=== PATIENT | female | born 1975 ===

== ENCOUNTER 2025-09-03 12:43 | Outpatient (AMB) | payer BC, SELFPAY ==
--- NOTE | 2025-09-03 12:46 | A.OFFPC_ITS ---
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 [employer] Required: No Accompanied by: Self / Same As Patient Allergies onions Allergy (Severe, Uncoded 09/03/25 12:52) Stomach Upset Medication List - Last Reconciled 09/03/25 by Cole Curry MD escitalopram oxalate 10 mg PO DAILY esomeprazole magnesium 20 mg PO DAILY losartan 50 mg PO DAILY Tobacco use date assessed: 09/03/25 Dental Screening Dental Screen Date: 09/03/25 Did you have a dental visit in the last 12 months?: Yes Did you have a dental problem in the last 6 months where you did not have access to dental care?: No Was dental information given to patient?: Patient has dentist HPI HPI Comments History of Present Illness Details The patient is a 50 year old female with PMH of GERD, MDD, IBS, PCOS presenting for a new patient visit to establish primary care. She has a history of severe anxiety, which she has been managing with escitalopram for approximately three years with good effect and on a stable dose. Regarding her gastrointestinal history, the patient reports gastroesophageal reflux disease and irritable bowel syndrome (IBS). She takes esomeprazole, which was prescribed to prevent Crain's esophagus, and notes symptoms recur if she discontinues the medication. She underwent an endoscopy and colonoscopy about three years ago, and another colonoscopy within the past year, with a recommended follow-up in 7-10 years. Her IBS symptoms, managed with a FODMAP diet, have improved significantly since identifying and eliminating onions, which also resolved her chronic lower back pain. The patient has a history of polycystic ovary syndrome (PCOS), which she notes affects her weight. Her surgical history includes a partial hysterectomy with ovarian conservation, carpal tunnel surgery, and egg retrieval. Her family histo ry is significant for multiple cancers on her father's side (aunts from father side) and breast cancer on her mother's side; however, she is negative for BRCA gene mutations. She had a normal mammogram this year and undergoes regular screening. Questionnaire PHQ-9 Over the last 2 weeks, how often have you been bothered by any of the following problems? 1. Little interest or pleasure in doing things: not at all 2. Feeling down, depressed, or hopeless: not at all 3. Trouble falling or staying asleep, or sleeping too much: not at all 4. Feeling tired or having little energy: several days 5. Poor appetite or overeating: more than half the days 6. Feeling bad about yourself - or that you are a failure or have let yourself or your family down: not at all 7. Trouble concentrating on things, such as reading the newspaper or watching television: not at all 8. Moving or speaking so slowly that other people could have noticed. Or the opposite - being so fidgety or restless that you have been moving around a lot more than usual: not at all 9. Thoughts that you would be better off or of hurting yourself in some way: not at all Total score: 3 Depression Screening Interpretation: Negative Depression Screening Done: Yes Source: Developed by Drs. Seymour Krishnan, Lindsey Lu, Anthony Cifuentes and colleagues, with an educational carlos from [employer]. Thrive Questionnaire Date Thrive assessed: 09/01/25 I am a: Patient What is your living situation today?: I choose not to answer this question Within the past 12 months, did the food you bought not last and you didn't have the money to get more?: I choose not to answer this question Within the past 12 months, did you worry whether your food would run out before you got money to buy more?: I choose not to answer this question Do you have trouble paying for medicines?: I choose not to answer this question Do you have trouble getting transportation to medical appointments?: I choose not to answer this question Do you have trouble paying your heating and electricity bill?: I choose not to answer this question Do you have trouble taking care of your child, family member or friend?: I choose not to answer this question Do you have trouble with day-to-day activities such as bathing, preparing meals, shopping, managing finances, etc.?: I choose not to answer this question Are you currently unemployed and looking for a job?: I choose not to answer this question Are you interested in more education?: I choose not to answer this question Please select the resources that you would like help with: None Currently or been in a relationship where the following occur: I choose not to answer THRIVE Score: 0 AUDIT C Alcohol Use Questionnaire (AUDIT-C) 1. How often do you have a drink containing alcohol?: Never Total Score: 0 EDUAR-7 AMB Questionnaire EDUAR-7 Feeling nervous, anxious, or on edge: 0 = Not at all Not being able to stop or control worryin = Not at all Worrying too much about different things: 0 = Not at all Trouble relaxin = Not at all Being so restless that it is hard to sit still: 1 = Several days Becoming easily annoyed or irritable: 0 = Not at all Feeling afraid as if something awful might happen: 1 = Several days Total EDUAR-7 score (0-4 normal; 5-9 mild; 10-14 moderate; 15-21 severe): 2 Source: Developed by Drs. Seymour Krishnan, Lindsey Lu, Anthony Cifuentes and colleagues, with an educational carlos from [employer]. Review of Systems Const Details: Positives besides what was mentioned in HPI are in BOLD Constitutional: No Weight Change, No Fever, No Chills, No Night Sweats, No Fatigue, No Malaise ENT/Mouth: No Hearing Changes, No Ear Pain, No Nasal Congestion, No Sinus Pain, No Hoarseness, No sore throat, No Rhinorrhea, No Swallowing Difficulty Eyes: No Eye Pain, No Swelling, No Redness, No Foreign Body, No Discharge, No Vision Changes Cardiovascular: No Chest Pain, No SOB, No PND, No Dyspnea on Exertion, No Orthopnea, No Claudication, No Edema, No Palpitations Respiratory: No Cough, No Sputum, No Wheezing, No Smoke Exposure, No Dyspnea Gastrointestinal: No Nausea, No Vomiting, No Diarrhea, No Constipation, No Pain, No Heartburn, No Anorexia, No Dysphagia, No Hematochezia, No Melena, No Flatulence, No Jaundice Genitourinary: No Dysmenorrhea, No DUB, No Dyspareunia, No Dysuria, No U rinary Frequency, No Hematuria, No Urinary Incontinence, No Urgency, No Flank Pain, No Urinary Flow Changes, No Hesitancy Musculoskeletal: No Arthralgias, No Myalgias, No Joint Swelling, No Joint Stiffness, No Back Pain, No Neck Pain, No Injury History Skin: No Skin Lesions, No Pruritis, No Hair Changes, No Breast/Skin Changes, No Nipple Discharge Neuro: No Weakness, No Numbness, No Paresthesias, No Loss of Consciousness, No Syncope, No Dizziness, No Headache, No Coordination Changes, No Recent Falls Psych: No Anxiety/Panic, No Depression, No Insomnia, No Personality Changes, No Delusions, No Rumination, No SI/HI/AH/VH, No Social Issues, No Memory Changes, No Violence/Abuse Hx., No Eating Concerns Heme/Lymph: No Bruising, No Bleeding, No Transfusions History, No Lymphadenop athy Endocrine: No Polyuria, No Polydipsia, No Temperature Intolerance Physical exam (Primary Care) Vital Signs: Last Vital Signs Pulse 94 09/03/25 12:50 Resp 18 09/03/25 12:50 BP 118/64 09/03/25 12:50 Pulse Ox 97 09/03/25 12:50 Oxygen Delivery Method Room Air 09/03/25 12:50 BMI result Body Mass Index 39.0 Tobacco/Smoking Status: Tobacco use Status Tobacco use date assessed 09/03/25 09/03/25 12:56 PHQ-9: PHQ-9 Score PHQ-9: Total score 3 09/03/25 12:56 Depression Screening Interpretation: Negative Thrive Assessment: Date of Thrive Assessment Date Thrive assessed 09/01/25 09/03/25 12:56 Currently or been in a relationship where the following occur: I choose not to answer Const Other: Pertinent findings are in BOLD GENERAL APPEARANCE NAD, activity normal for age, well developed/ well nourished, no cyanosis, pallor, or diaphoresis. EYES lids/conjunctiva normal. EARS/NOSE/THROAT Mucous membranes moist, nares normal, lips/teeth normal uvula midline without oral pharyngeal erythema, exudate or swelling TMs normal bilaterally. No lymphangitis/lymphedema. HEAD/NECK normocephalic atraumatic, no facial trauma, neck is supple. RESPIRATORY respiratory effort normal, speaks in full sentences, no tripod position, no accessory muscle use. Lungs clear to auscultation without rhonchi, wheezes, rales CARDIAC Regular rate and rhythm, no edema. ABDOMINAL Soft, ND/NT. No evidence of fluid wave. No pulsatile masses on exam, rebound tenderness, Diaz sign or pain over Mcburney's point. MUSCLES/EXTREMITIES No abnormal range of motion, no swelling. SKIN Warm, pink and dry. No rashes, dermatoses, petechiae or lesions. NEUROLOGICAL Speech is clear and appropriate. Normal level of consciousness. Gait and coordination are normal. 5/5 strength in all extremities. PSYCH Normal mood and affect. Judgement/competence is appropriate Coding Level of Care Code New Pt Level 4 (36247) Diagnoses Healthcare maintenance Z00.00 PCOS (polycystic ovarian syndrome) E28.2 History of partial hysterectomy Z. Carpal tunnel syndrome G56.00 Acid reflux K21.9 Irritable bowel syndrome, unspecified type K58.9 Irritable bowel syndrome type: unspecified Anxiety F41.9 Time Spent (min) 30 Assessment & Plan Assessment & Plan (1) Healthcare maintenance: Code(s): Z00.00 - Encounter for general adult medical examination without abnormal findings Category: Medical Plan: CBC, CMP, Lipid panel, A1C, TSH w T4. Ordered. Shingles 2 doses when >50 yo. At 50. COVID: two doses. Completed. Tdap: Done in 2024. Next due in 2034. Pneumococcal: >50 yo. 18-49 with CKD, lung disease, weakened immune system, Heart disease, DM, cochlear implant. At 52. Flu vaccine: Done recently. Colonoscopy: 45-75. Done this year as per patient. she will get records with her next visit. AAA: 65 -75. NI. CT lun - 80. NI. HPV: Follows with hospital pharmacist. HIV: Today. HCV: Today. Mammogram: Completed this year as per the patient. Patient will continue to follow with her current TRANSFORMER BUILDER. (2) PCOS (polycystic ovarian syndrome): Code(s): E28.2 - Polycystic ovarian syndrome Category: Medical Plan: Follows with OBGYN. Continue with lifestyle modifications including elimination diet and physical activity. (3) History of partial hysterectomy: Code(s): Z90.711 - Acquired absence of uterus with remaining cervical stump Category: Surgical Plan: CTM. (4) Carpal tunnel syndrome: Code(s): G56.00 - Carpal tunnel syndrome, unspecified upper limb Category: Medical Plan: s/p surgery. CTM. (5) Acid reflux: Code(s): K21.9 - Gastro-esophageal reflux disease without esophagitis Category: Medical Plan: - The patient is currently managed with Esomeprazole for prevention of Crain's esophagus. - As per the patient, she underwent recent EGD which showed gastritis but we do not have the records. - She experiences symptoms if she does not take the medication. - Will continue current medication and have taken over prescription management. - A referral will be placed to gastroenterology for further management of her multiple GI concerns and for potential repeat of EGD. (6) IBS (irritable bowel syndrome): Code(s): K58.9 - Irritable bowel syndrome, unspecified Category: Medical Qualifiers: Irritable bowel syndrome type: unspecified Qualified Code(s): K58.9 - Irritable bowel syndrome, unspecified Plan: - The patient reports her IBS improved significantly after identifying and eliminating onions from her diet, which also resolved her chronic low back pain. - Placed a referral to GI for further evaluation and management of her multiple GI complaints. - Patient was counseled on further dietary exploration, specifically advising to eliminate dairy products and sugar to see if GI symptoms and overall health improve. (7) Anxiety: Code(s): F41.9 - Anxiety disorder, unspecified Category: Medical Plan: - The patient reports her anxiety is well-controlled with Escitalopram. - Will continue the current dosage and took over prescription management. Plan I introduced myself as her new primary care physician and that I am using ambien listening. We reviewed her current medications, including escitalopram for anxiety, esomeprazole for GERD, and losartan, and I took over the management of these prescriptions. 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 I explained that I would be ordering general labs, including a cholesterol panel, CBC, CMP, and HbA1c, along with routine screenings for Hepatitis C and HIV. I also informed her of a referral to a supervisor malt house due to her multiple GI concerns. We had an extensive discussion about diet and its role in prevention and management of her conditions, particularly IBS and PCOS. I recommended she try eliminating dairy and sugar from her diet and noted that this could lead to significant weight loss and improvement in her symptoms. I explained that feelings of hunger might be withdrawal symptoms from addictive foods like sugar, and encouraged her to persevere through this period. We briefly touched upon weight loss medications like Ozempic, but agreed that focusing on diet and lifestyle changes is the preferred initial approach. I scheduled a follow-up visit in six months to review her progress. Orders: Orders Complete Blood Count no Diff Today Z00.00 - Encounter for general adult medical examination without abnormal findings Lipid Panel Today Z00.00 - Encounter for general adult medical examination without abnormal findings HIV Ab/Ag Today Z00.00 - Encounter for general adult medical examination without abnormal findings Comprehensive Met. Panel Today Z00.00 - Encounter for general adult medical examination without abnormal findings Hepatitis C Antibody Reflex Today Z00.00 - Encounter for general adult medical examination without abnormal findings TSH reflex Free T4 Today Z00.00 - Encounter for general adult medical examination without abnormal findings Hemoglobin A1c Today Z00.00 - Encounter for general adult medical examination without abnormal findings Referrals Gastroenterology Referral K21.9 - Gastro-esophageal reflux disease without esophagitis, K58.9 - Irritable bowel syndrome, unspecified Medications: New escitalopram oxalate 10 mg PO DAILY 30 tabs 3RF esomeprazole magnesium 20 mg PO DAILY 30 caps 3RF losartan 50 mg PO DAILY 30 tabs 3RF
[2025-09-03 12:50] VITALS: BP 118/64; PULSE 94; RESP 18; O2SAT 97; BMI 39.0
--- OUTSIDE RECORDS SUMMARY | 2025-09-03 18:15 | XMS_ITS | Encounter Summary ---
Author Organization [employer] Address [address] [facility] [address] [place] [address] Care Team Providers Care Wagon Driver Name Role Phone Jacinda Johana [facility] Primary Care Provider [phone] Encounter Details Date Type Department Care Team (Late st Contact Info) Description 08/18/2024 Orders Only [facility] [address] [place] [address] Johana Monaco [facility] [address] [facility] [place] [address] Social History Tobacco Use Types Packs/Day Years Used Date Smoking Tobacco: Never Smokeless Tobacco: Never Alcohol Use Standard Drinks/Week Comments Not Currently 0 (1 standard drink = 0.6 oz pur e alcohol) Housing Stability Answer Date Recorded What is your housing situation today? I have markel gaby 01/01/[address] you li ve. Do you have problems with any of the following? None of the above 01/01/2024 Food Insecurity Answer Date Recorded Within the past 12 months, y ou worried that your food would run out before you got money to buy more: Never True 01/01/2024 Within the past 12 months,th e food you bought just didn't last and you didn't have enough money to get more: Never True 06/2024 Transportation Answer Date Recorded In the past 12 months, has l ack of transportation kept you from medical appts, meetings, work or from getting things needed for daily living? No 01/01/2024 Utilities Answer Date Recorded In the past 12 months, has t he electric, gas, oil or water [employer] threatened to shut off services in your home? No 01/01/2024 Depression Answer Date Recorded Patient Health Questionnaire-2 Score 1 01/01/2024 Comments No Sex and Gender Information Value Date Recorded Sex Assigned at Female 11/14/2023 11:15 AM EST Legal Sex Female 11:12 AM EST Gender Identity Female 11/14/2023 11:15 AM EST Sexual Orientation Straight 11/14/2023 11 :15 AM EST documented as of this encounter Plan of Treatment Not on file documented as of this encounter Procedures Procedure Name Priority Date/Time Associated Diagnosis Comments HM COLONOSCOPY Routine 08/10/2024 11:11 AM EST documented in this encounter Results * Hm Colonoscopy (08/10/2024 11:11 AM EST) [facility] Final Result documented in this encounter Visit Diagnoses Not on filedocumented in this encounter Care Teams Wagon Driver Relationship Specialty Start Date End Date Johana Monaco FNP [address] [facility] [place] [address] PCP - General Family Medicine 11/14/23 documented as of this encounter
--- OUTSIDE RECORDS SUMMARY | 2025-09-03 18:15 | XMS_ITS | Encounter Summary ---
Author Organization [employer] Address [address] [facility] [address] [place] [address] Care Team Providers Care Building Maintenance Technician Name Role Phone Jacinda Johana [facility] Primary Care Provider [phone] Encounter Details Date Type Department Care Team (Late st Contact Info) Description 08/13/2024 Orders Only [facility] [address] [place] [address] [facility] [address] [facility] [place] [address] Social History Tobacco Use Types Packs/Day Years [...] t he electric, gas, oil or water [employer] threatened to shut off services in your [...] Procedure Name Priority Date/Time Associated Diagnosis Comments PATHOLOGY REPORT (HISTOPATHOLOGY) Routine 08/10/2024 3:22 PM EST documented in this encounter Results * Pathology Report (Histopathology) (08/10/2024 3:22 PM EST) Tissue Johana [facility] ORDER[facility]LES Final Result documented in this encounter Visit Diagnoses Not on filedocumented in this encounter Care Teams Building Maintenance Technician Relationship Specialty Start Date End Date Johana Monaco FNP [address] [place] [address] PCP - General Family Medicine 11/14/23 documented as of this encounter
--- OUTSIDE RECORDS SUMMARY | 2025-09-03 18:16 | XMS_ITS | Clinical Summary ---
Author Organization [employer] Address [address] [place] [address] [address] [place] [address] Care Team Providers Care Intellectual Property Legal Assistant Name Role Phone Johana Monaco MARTITA Primary Care Provider [phone] Allergies Active Allergy Reactions Criticality Noted Date Comments Fish Protein-Containing Drug Products Hives High 11/12/2019 crawfish Medications guaiFENesin (Mucinex) 600 MG 12 hr tabletIndications: Acute non-recurrent pansinusitis,Acute cough One tab PO in a.m. and p.m .daily with a full glass of water to thin and loosen mucous secretions 20 tablet 4 Active ibuprofen 600 MG tabletIndications: Acute nonintractable headache, unspecified headache type One tablet PO up to TID with a meal 21 tablet 4 Active esomeprazole (NexIUM) [address] capsuleIndications :Gastroesophageal reflux disease without esophagitis TAKE 1 CAPSULE (20 MG) BY MOUTH BEFORE BREAKFAST. DO NOT OPEN CAPSULE. 90 capsule 3 5 026 Active losartan (Cozaar) 50 MG tabletIndications: Essential hypertension TAKE 1 TABLET (50 MG) BY MOUTH ONCE PER DAY. 90 tablet 3 5 Active escitalopram (Lexapro) 10 MG tabletIndications: Anxiety TAKE 1 TABLET BY MOUTH EVERY DAY 90 tablet 3 5 Active Active Problems Problem Noted Date Diagnosed Date Acute non-recurrent pansinusitis 08/31/2024 Assessment & Plan (08/31/2024 10:34 PM EST): Persistent sinus congestion/pain, postnasal drip and cough with malaise, recent fever but at urgent care (per notes in chart) negative for strep, rsv, flu and Covid - symptoms not improving in nearly 3 weeks - starting gargles, augmentin, benzonatate and ibuprofen prn fever/pain, NEGRO and mucinex 600 mg PO BID with full glass of water ,rest, hydrate. Preethi agrees to plan, no further questions or concerns at visit conclusion. Encouraged to f/up in person if no improvement or any worsening of symptoms. Avoid taking multi drug OTC preparations as discussed, rather self care, gargles and meds as prescribed. Acute cough 08/31/2024 Acute nonintractable headache 08/31/2024 Prediabetes 01/01/2024 Class 2 severe obesity due t o excess calories with serious comorbidity and body mass index (BMI) of 36.0 to 36.9 in adult 01/01/2024 Irritable bowel syndrome with diarrhea 2 GERD (gastroesophageal reflux disease) 1 Overview (01/01/2024): 2020 - with mildly abnormal biopsy, with GEJ carditis. GI was worried about possible borderline Crain's esophagus and recommended daily PPI therapy Family history of breast cancer 10/02/2019 Overview (01/01/2024): - negative genetic testing 2019 Family history of ovarian cancer 10/02/2019 Anxiety 11/11/2017 Depression 11/11/2017 Essential hypertension 11/11/2017 Overview (01/01/2024): Patient is monitoring blood pressure at home. Date of last accuracy check of home BP cuff: 06/30/21 PCOS (polycystic ovarian syndrome) 11/11/2017 Overview (01/01/2024): - s/p partial hysterectomy, benign Hypertriglyceridemia 11/11/2017 Encounters Date Type Department Care Team Description 07/08/2025 Orders Only [place] [facility] [facility] [address] [place] [address] [facility] BED AND BREAKFAST OPERATOR from Last 3 Months Immunizations Immunization Administration Dates Next Due Influenza, Injectable, MDCK, preservative free 11/17/2024 Influenza, Unspecified 09/05/2022 Pfizer Covid-19 Vaccine 12+ 06/10/2023,1 10/26/2020,01/05/2021,2020 Pfizer Covid-19 Vaccine 12+ Bivalent 08/05/2022 Rabies - IM Fibroblast Culture 9,04/05/2019,04/01/2019,2018 Tdap 03/16/2019 Family History Medical History Relation Name Comments Alcohol abuse Father Prostate cancer Father Breast cancer Father's Sister 1 Lymphoma Father's Sister 1 Breast cancer Father's Sister 2 Breast cancer Father's Sister 3 Heart attack Maternal Grandmother Alcohol abuse Mother Basal cell carcinoma Mother Stroke Mother Basal cell carcinoma Mother's Sister Breast cancer Mother's Sister Diabetes Paternal Grandfather Stroke Paternal Grandfather Ovarian cancer Paternal Grandmother Relation Name Status Comments Father Father's Sister 1 Father's Sister 2 Father's Sister 3 Maternal Grandmother Mother Mother's Sister Paternal Grandfather Paternal Grandmother Social History Tobacco Use Types Packs/Day Years Used Date Smoking Tobacco: Never Smokeless Tobacco: Never Tobacco Cessation:Counseling Given: Not Answered Alcohol Use Standard Drinks/Week Comments Not Currently 0 (1 standard drink = 0.6 oz pur e alcohol) Housing Stability Answer Date Recorded What is your housing situation today? I have markel griffin 01/01/[address] you li [...] t he electric, gas, oil or water company threatened to shut off services in your home? No 01/01/2024 Depression Answer Date Recorded Patient Health Questionnaire-2 Score 1 01/01/2024 Comments No Sex and Gender Information Value Date Recorded Sex Assigned at Female 11/14/2023 11:15 AM EST Legal Sex Female 11:12 AM EST Gender Identity Female 11/14/2023 11:15 AM EST Sexual Orientation Straight 11/14/2023 11 :15 AM EST Last Filed Vital Signs Vital Sign Reading Time Taken Comments Blood Pressure 116/79 04/09/2024 10:49 AM EDT Pulse 99 04/09/2024 10:49 AM EDT Temperature 36.2 C (97.2 F) 04/09/2024 10:49 AM EDT Respiratory Rate 18 01/30/2024 9:36 AM EDT Oxygen Saturation 98% 04/09/2024 10:49 AM EDT Inhaled Oxygen Concentration - - Weight 102 kg (224 lb 6.4 oz) 04/09/2024 10:49 A M EDT Height 165.1 cm (5' 5 ) 04/09/2024 10:49 AM EDT Body Mass Index 37.34 04/09/2024 10:49 AM EDT Plan of Treatment Health Maintenance Due Date Last Done Comments CT Colonography 1977 FIT DNA/Cologuard 1977 FIT 1977 FOBT 1977 HIV Screening 1977 Sigmoidoscopy 1977 Alcohol/Substance Use Screening 1989 Family Planning (PISQ) 1992 Hepatitis C Screening 1995 Hepatitis B Vaccines (1 of 3 - 19+ 3-dose series) 1996 Depression Screening 12/31/2024 01/01/2024, 01/01/20 24 SDOH Screening 12/31/2024 01/01/2024 Diabetes: Hemoglobin A1C 04/08/2025 04/08/2024, 03/23 Tobacco Screening 04/09/2025 04/09/2024 COVID-19 Vaccine ( season) 2025 06/10/2023, 08/05/2022, 08/25/2021, Additional history exists Influenza Vaccine (#1) 2025 11/17/2024, 2021 Disability Screening 08/31/2025 08/31/2024 Zoster Vaccines (1 of 2) 2027 Mammogram 07/05/2027 07/05/2025, 06/23, 07/03/2024, Additional history exists DTaP/Tdap/Td Vaccines (2 - Td or Tdap) 03/16/2029 03/16/2019 Lipid Panel 04/08/2029 04/08/2024 Colonoscopy 08/10/2034 08/10/2024 Colorectal Cancer Screening 08/10/2034 RSV Patients and Patients Aged 60 years or older (1 - 1-dose 75+ series) 2052 HIB Vaccines Aged Out No longer eligi ble based on patient's age to complete this topic HPV Vaccines Aged Out No longer eligi ble based on patient's age to complete this topic Hepatitis A Vaccines Aged Out No long er eligible based on patient's age to complete this topic IPV Vaccines Aged Out No longer eligi ble based on patient's age to complete this topic Meningococcal B Vaccine Aged Out No l onger eligible based on patient's age to complete this topic Meningococcal Vaccine Aged Out No bharath lyndon eligible based on patient's age to complete this topic Pneumococcal Vaccine: Pediatrics (0 to 5 Years) and At-Risk Patients (6 to 49) Years Aged Out No longer eligible based on patient's age to complete this topic RSV under 20 months Aged Out No longe r eligible based on patient's age to complete this topic Rotavirus Vaccines Aged Out No longer eligible based on patient's age to complete this topic Procedures Procedure Name Priority Date/Time Associated Diagnosis Comments MAMMO SCREENING BILATERAL Routine 07/05/2025 12:59 PM EDT HM COLONOSCOPY Routine 08/10/2024 11:11 AM EST HEMOGLOBIN A1C Routine 04/08/2024 Prediabetes LIPID PANEL, STANDARD Routine 04/08/2024 Hyperlipidemia, unspecified hyperlipidemia type HM MAMMOGRAPHY Routine 07/01/2023 from Last 3 Months or Most Recently Relevant to Health Maintenance Results * MAMMO SCREENING BILATERAL (07/05/2025 12:59 PM EDT) Anatomical Region Laterality Modality Mammography [facility] IMG BI PROCEDURES Final R esult * Hm Colonoscopy (08/10/2024 11:11 AM EST) [facility] HEALTH MAINTENANCE Final Result * Hemoglobin A1c (04/08/2024) Blood Venous blood specimen / Unknown [facility] LAB BLOOD ORDERABLES Makayla l Result EXTERNAL LAB * Lipid Panel, Standard (04/08/2024) Blood Venous blood specimen / Unknown [facility] LAB BLOOD ORDERABLES Makayla l Result Performing Organization Address City/[facility]/ZIP Co de Phone Number EXTERNAL LAB from Last 3 Months or Most Recently Relevant to Health Maintenance Insurance BS PPO Care Teams Intellectual Property Legal Assistant Relationship Specialty Start Date End Date [facility] [address] [facility] [place] [address] PCP - General Family Medicine 11/14/23
--- OUTSIDE RECORDS SUMMARY | 2025-09-03 18:16 | XMS_ITS | Encounter Summary ---
Author Organization [employer] Address [address] [facility] [address] [place] [address] Care Team Providers Care Cleaner And Dyer Name Role Phone Jacinda Johana [facility] Primary Care Provider [phone] Encounter Details Date Type Department Care Team (Late st Contact Info) Description 07/08/2025 Orders Only [place] [facility] [address] [place] [address] [facility] [address] [facility] [place] [id number] Social History Tobacco Use Types Packs/Day Years [...] t he electric, gas, oil or water [employer] threatened to shut off services in your [...] SCREENING BILATERAL Routine 07/05/2025 12:59 PM EDT documented in this encounter Results * MAMMO SCREENING BILATERAL (07/05/2025 12:59 PM EDT) Anatomical Region Laterality Modality Mammography Johana ANDERS IMG BI PROCEDURES Final R esult documented in this encounter Visit Diagnoses Not on filedocumented in this encounter Care Teams Cleaner And Dyer Relationship Specialty Start Date End Date Johana Monaco FNP [address] [place] [address] PCP - General Family Medicine 11/14/23 documented as of this encounter
== END 2025-09-03 13:32 | disposition home or self-care (01) ==
LOC: HO.HMCH 12:44
PROVIDERS: PCP Internal Medicine; Visit Provider Internal Medicine
DX: Z00.00 Encounter for general adult medical examination without abnormal findings (principal); E28.2 Polycystic ovarian syndrome; Z90.711 Acquired absence of uterus with remaining cervical stump; G56.00 Carpal tunnel syndrome, unspecified upper limb; K21.9 Gastro-esophageal reflux disease without esophagitis; K58.9 Irritable bowel syndrome, unspecified; F41.9 Anxiety disorder, unspecified